=== PATIENT | male | born 2000 | race Two or more races ===

== ENCOUNTER 2024-03-30 19:24 | Emergency (ER) | payer MEDICAID, OTHER ==
[~2024-03-30] VITALS: Ht 167.6 cm; Wt 83.9 kg
[2024-03-30] MEDS: MORPHINE SULFATE INJ 2 MG/ML DISP.SYRIN IV ONE (20:00)
[2024-03-30] MEDS ORDERED: MORPHINE SULFATE INJ 4 MG/ML DISP.SYRIN ONE (20:02)
[2024-03-30] MEDS ORDERED: CT SWABBABLE VALVE TRANS SET 1 EA INFUS.SET MC ONE (22:40)
[2024-03-30] MEDS ORDERED: IOHEXOL-300 100 ML VIAL IV ONE (22:40)
[2024-03-30] MEDS ORDERED: IV NS 0.9% 250 ML IV ONE (22:41)
[2024-03-31] MEDS ORDERED: ACET-2605 PO (01:14)
[2024-03-31] MEDS ORDERED: IBUP-1490 PO (01:14)
[2024-03-31] MEDS ORDERED: CYCL10TA9 PO (01:14)
[2024-03-31] MEDS ORDERED: KETOROLAC TROMETHAMINE 15 MG/ML VIAL ONE (01:17)
[2024-03-31] MEDS ORDERED: CYCLOBENZAPRINE 10 MG TABLET ONE (01:17)
[2024-03-31] MEDS ORDERED: ACETAMINOPHEN ES 500 MG TABLET ONE (01:17)
[2024-03-31] MEDS: ACETAMINOPHEN ES 500 MG TABLET PO ONE (01:24)
[2024-03-31] MEDS: CYCLOBENZAPRINE 10 MG TABLET PO ONE (01:24)
[2024-03-31] MEDS: KETOROLAC TROMETHAMINE 15 MG/ML VIAL IV ONE (01:24)
[2024-03-31 01:44] VITALS: BP 134/78; TEMP 98; O2SAT 99
== END 2024-03-31 01:45 | disposition home or self-care (01) ==
LOC: ER 19:26
DX: S09.90XA Unspecified injury of head, initial encounter (principal); M25.561 Pain in right knee; M25.512 Pain in left shoulder; M79.651 Pain in right thigh; V49.9XXA Car occupant (driver) (passenger) injured in unspecified traffic accident, initial encounter; Y93.89 Activity, other specified; Y92.488 Other paved roadways as the place of occurrence of the external cause; Y99.8 Other external cause status
CPT/HCPCS: 99285; 71260; 96374; 73600; 73080; 73552; 73564; 73030; 70450; 72192; 74177; 73110; 96375; J2270; J7050; Q9967; J1885